=== PATIENT | male | born 1980 | race Caucasian/White ===

== ENCOUNTER 2017-01-26 23:55 | Emergency (ER) | payer OTHER ==
[~2017-01-26 23:55] MED LIST: BENADRYL PO; FAMOTIDINE PO; FLEXERIL10 M1 PO; FLEXERIL10 MG PO; IBUPROFEN800 MG PO; LORTAB 10-5001 EACH PO; MEDROL PO; MOTRIN20 MG/ML PO; NO MEDICATIONS; PREDNISONE PO; VOLTAREN50 MG PO; VOLTAREN75 MG PO
== END 2017-01-27 00:15 | disposition home or self-care (01) ==
LOC: CFTX 23:55
DX: R21 Rash and other nonspecific skin eruption (principal); F17.210 Nicotine dependence, cigarettes, uncomplicated; Z23 Encounter for immunization
CPT/HCPCS: 90471; 90715; 99283